=== PATIENT | female | born 1965 | race Hispanic/Latino ===

== ENCOUNTER 2018-02-13 10:39 | Emergency (ER) | payer OTHER ==
[2018-02-13 10:49] VITALS: BP 116/66; PULSE 85; RESP 19; TEMP 98.4; O2SAT 99
[2018-02-13] MEDS ORDERED: Naproxen 500 MG TAB PO STA (11:46)
[2018-02-13] MEDS ORDERED: Tdap Vaccine 0.5 ml Vial (10-64 yrs) IM ONE ×2 (11:46→11:54)
[2018-02-13] MEDS ORDERED: Silver Sulfadiazine 1% CREAM (50 gm) TOP STA ×2 (11:47→12:23)
[2018-02-13] MEDS ORDERED: Naproxen 500 MG TAB PO ONE (11:53)
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
== END 2018-02-13 13:35 | disposition home or self-care (01) ==
LOC: H.ER 10:39
DX: T21.21XA Burn of second degree of chest wall, initial encounter (principal); X11.8XXA Contact with other hot tap-water, initial encounter